=== PATIENT | male | born 1965 | race Caucasian/White ===

== ENCOUNTER 2016-04-11 22:22 | Emergency (ER) | payer OTHER ==
[2016-04-11 22:32] VITALS: BP 140/88
[2016-04-12] MEDS ORDERED: AMOXICILLIN TRIHYDRATE 250 MG CAPSULE PO ONE (00:41)
[2016-04-12] MEDS ORDERED: IBUPROFEN 400 MG TABLET PO ONE (00:42)
[2016-04-12] MEDS ORDERED: AMOXICILLIN TRIHYDRATE 250 MG CAPSULE ONE (00:42)
[2016-04-12] MEDS ORDERED: IBUPROFEN 400 MG TABLET ONE (00:43)
--- NOTE | 2016-04-12 00:54 | ERNOTE ---
ENT HPI Date of Service: 04/12/16 Source: patient - Immun/Allergies/Home Medications Immunizations: IMMUNIZATION HX Immunizations Up to Date No History of Influenza Vaccine No Hx Pneumococcal Vaccination No Allergies/Adverse Reactions: Allergies Allergy/AdvReac Type Severity Reaction Status Date / Time acetaminophen Allergy Severe Swelling Verified 04/11/16 22:32 of Throat Home Medications: HOME MEDICATIONS Amoxicillin Trihydrate [Amoxil] 500 mg PO Q8H #21 capsule 04/12/16 [Last Taken Unknown] - History of Present Illness Narrative: Complaints of a severe sore throat after awakening from a nap. No complaints of fevers or chills. He is concerned about infecting his son who had a heart transplant about one year ago. Date (Duration): 04/12/16 Severity: Present: moderate ENT Location: Present: ear (R), ear (L), throat Modifying Factors - Improves: Reports: other - nothing Modifying Factors - Worsens: Reports: nothing Associated Symptoms - ENT: Reports: denies symptoms Review of Systems - Review of Systems Constitutional: Present: no symptoms reported EYE: Present: no symptoms reported ENT: Present: See HPI Respiratory: Present: no symptoms reported Cardiology: Present: no symptoms reported Gastrointestinal/Abdominal: Present: no symptoms reported Genitourinary: Present: no symptoms reported Musculoskeletal: Present: no symptoms reported Skin: Present: no symptoms reported Neurological: Present: no symptoms reported Endocrine: Present: no symptoms reported Hematologic/Lymphatic: Present: no symptoms reported - Patient's Past Medical History Patient History - Medical: Migraines Patient History - Cardiac/Respiratory: No pertinent hx Patient History - Cancer: No Hx of Cancer Patient History - Surgical Procedures: Appendectomy, Other Patient History - Other: None - Family History Mother Family History - Medical: History Unknown Father Family History - Medical: , No pertinent hx - Social History Living Situations: home Smoking Status: Current some day smoker Do you dip or chew tobacco: Yes Alcohol Use: none Drug Use: marijuana - Immunizations Immunizations Up to Date: No Hx Pneumococcal Vaccination: No History of Influenza Vaccine: No Physical Exam - Physical Exam General Appearance: Present: no apparent distress Eye Exam: Normal inspection: bilateral Ears, Nose, Throat: Present: tonsillar exudate Neck: Present: other - Tenderness at the right anterior chain, no palpable lymph nodes. 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 - Vital Signs Vital Signs: Vital Signs 04/11/16 22:29 Temperature 36.5 C Pulse Rate 92 Respiratory 18 Rate Blood Pressure 140/88 O2 Sat by Pulse 97 Oximetry - Progress/Reassessment Chief Complaint: Earache Departure Clinical Impression: Strep pharyngitis - Departure Disposition: Home self-care Condition: Good Instructions: Strep Throat, [id number] Print Language: Hebrew Referrals: Cristiano Wellington MD [Primary Care Provider] - Prescriptions: Amoxicillin Trihydrate [Amoxil] 500 mg PO Q8H #21 capsule
== END 2016-04-12 00:49 | disposition home or self-care (01) ==
LOC: ER 22:22
DX: F17.210 Nicotine dependence, cigarettes, uncomplicated (principal); J02.0 Streptococcal pharyngitis

== ENCOUNTER 2016-12-09 08:39 | Emergency (ER) | payer OTHER ==
[2016-12-09] MEDS ORDERED: NORMAL SALINE 1,000 ML IV ONE ×2 (09:05→11:26)
[2016-12-09] MEDS ORDERED: KETOROLAC TROMETHAMINE 30 MG/ML VIAL IV ONE (09:05)
[2016-12-09] MEDS ORDERED: PROMETHAZINE HCL 25 MG in DEXTROSE 5 % IN WATER 50 ML IV ONE ×2 (09:05)
[2016-12-09] MEDS ORDERED: MORPHINE SULFATE 4 MG/ML SYRG IV ONE ×2 (09:06→10:55)
[2016-12-09] MEDS ORDERED: MORPHINE SULFATE 4 MG/ML SYRG ONE ×2 (09:17→11:10)
[2016-12-09] MEDS ORDERED: KETOROLAC TROMETHAMINE 30 MG/ML VIAL ONE (09:17)
[2016-12-09 09:19] LABS: Hematocrit 39.6 % (42.0-52.0); Mean Cell Volume 95.7 fl (78-100); Mean Corpuscular Hemoglobin 33.8 pg (27-31); Mean Corpuscular Hgb Conc 35.4 g/dl (32-36); Mean Platelet Volume 8.6 fl (6.0-9.5); Neutrophil # 11.7 K/mm3 (1.3-6.0); Neutrophil % 88.6 % (42-75.0); Platelet Count 219 K/mm3 (150-450); Red Blood Count 4.14 M/mm3 (4.7-6.0); Red Cell Distribution Width 11.9 % (11.5-14.0); White Blood Count 13.2 K/mm3 (4.0-10.5)
[2016-12-09 09:20] LABS: Urine Bilirubin Negative (NEGATIVE); Urine Blood Negative /ul (NEGATIVE); Urine Ketone Negative (NEGATIVE); Urine Nitrite Negative (NEGATIVE); Urine Protein Negative (NEGATIVE); Urine Specific Gravity <=1.005 SP.GR. (1.005-1.030); Urine Urobilinogen Normal (NORMAL); Urine pH 5.5 pH (5.0-7.0)
[2016-12-09 09:33] LABS: Urine Appearance Clear; Urine Bacteria None Seen; Urine Color Yellow; Urine RBC None Seen /hpf (0-5); Urine WBC None Seen /hpf (0-5)
[2016-12-09 09:39] LABS: Troponin I Less than 0.017 ng/ml (0.00-0.10)
[2016-12-09 09:44] LABS: Cocaine Ur Negative (NEGATIVE); Urine Barbiturate Negative (NEGATIVE); Urine Benzodiazepines Negative (NEGATIVE); Urine Opiates Negative (NEGATIVE); Urine PCP Negative (NEGATIVE); Urine THC Positive (NEGATIVE)
[2016-12-09 09:44] LABS: ALT 20 U/L (19-67); AST 18 U/L (0-48); Alkaline Phosphatase * 69 U/L (50-170); Anion Gap 15.3 mmol/L (6.8-13.8); BUN/Creatinine Ratio 8.2 (9.0-21.6); Bilirubin, Total 0.6 mg/dL (0.0-1.1); Blood Urea Nitrogen 11 mg/dL (6-23); CK Total * 68 U/L (0-259); Calcium * 8.3 mg/dL (7.9-10.9); Chloride 99 mmol/L (97-106); Glucose * 172 mg/dL (70-110); Lipase 107 U/L (73-393); Potassium 3.3 mmol/L (3.4-4.6); Sodium 133 mmol/L (132-142); Total Protein 7.4 gm/dL (6.2-8.2)
[2016-12-09 10:17] LABS: CRP 2.9 mg/dL (0.0-0.9)
--- NOTE | 2016-12-09 13:26 | ERNOTE ---
Medical Problem HPI - Narrative Date of Service: 12/09/16 - General Chief Complaint: General Assessment Time Seen by Provider: 12/09/16 08:58 Source: patient Exam Limitations: no limitations - Immun/Allergies/Home Medications Immunizations: IMMUNIZATION HX Immunizations Up to Date No History of Influenza Vaccine No Hx Pneumococcal Vaccination No Allergies/Adverse Reactions: Allergies acetaminophen Allergy (Severe, Verified 12/09/16 08:57) Swelling of Throat Home Medications: HOME MEDICATIONS Amox Tr/Potassium Clavulanate [Augmentin 875-125 Tablet] 875 mg PO Q12H #20 tab 12/09/16 [Last Taken Unknown] Promethazine HCl [Phenergan (Promethazine)] 25 mg PO Q6H PRN #10 tab 12/09/16 [ Last Taken Unknown] - History of Present History Narrative: Patient presents for vomiting and diarrhea. he relates he hadn't felt well for a couple of days. he was feeling somewhat dehydrated so started to drink more fluids. Last dilip he developed recurrent non-bloody vomiting and recurrent non- bloody, watery diarrhea. no abdominal pain with this. no clear sick contacts. he relates that for the last 3 days he has been having sharp pain in his medial left upper thigh. Hurts to touch it. Also pain in his left bicep. No CP or SOB. no dysuria. pain can be severe musculature left upper thigh. No groin pain or pain on the joints. no other clear exposures. Nothing makes this better or worse. No fever. Timing: constant Severity: moderate Modifying Factors - (Improves): Present: other - nothing Modifying Factors - (Worsens): Present: other - nothing Review of Systems - Review of Systems Constitutional: Absent: fever EYE: Absent: vision changes ENT: Absent: sore throat Respiratory: Absent: shortness of breath Cardiology: Absent: chest pain Gastrointestinal/Abdominal: Present: nausea, vomiting, diarrhea. Absent: abdominal pain Genitourinary: Absent: dysuria Skin: Absent: rash Neurological: Absent: weakness Hematologic/Lymphatic: Absent: easy bruising - Patient's Past Medical History Patient History - Medical: Migraines Patient History - Cardiac/Respiratory: No pertinent hx Patient History - Cancer: No Hx of Cancer Patient History - Surgical Procedures: Appendectomy, Other Patient History - Other: None - Family History Mother Family History - Medical: History Unknown Father Family History - Medical: , No pertinent hx - Social History Living Situations: home Abuse History: No History of abuse Psych History: No pertinent hx Alcohol Use: none Drug Use: marijuana - Immunizations Immunizations Up to Date: No Hx Pneumococcal Vaccination: No History of Influenza Vaccine: No Physical Exam - Physical Exam General Appearance: Present: alert, no apparent distress, other - non-toxic, no distress. Head Exam: Present: normal inspection, no evidence of injury Eye Exam: Normal inspection: bilateral, PERRL: bilateral Ears, Nose, Throat: Present: normal ENT inspection. Absent: pharyngeal erythema Neck: Present: normal inspection, nontender, supple, other - no meningeal signs Respiratory: Present: no respiratory distress, normal breath sounds, no accessory muscle use, chest nontender, lungs clear Cardiovascular/Chest: Present: regular rate, rhythm, normal peripheral pulses Gastrointestinal/Abdominal: Present: normal bowel sounds, nontender, nondistended, soft, other - I can elicit no tenderness in the abdomen Male Genitals Exam: Present: normal genitalia, no hernia, other - there is no scrotal tenderness Back Exam: Absent: CVA tenderness (R), CVA tenderness (L) Extremity Exam: Present: normal inspection, other - There is muscular tendenress medial left upper thigh, no redness. Strong pulses. There is no joint redness/tenderness/and full joint ROM throughtour. No compartment syndrome. No redness or warmth. there is also left biceps tendenress. Full ROM all joints. No suggestion of any septic arthritis. . Absent: extremity edema Neurological Exam: Present: alert, normal mood/affect, no motor/sensory deficits Skin Exam: Present: normal color, warm/dry. Absent: skin rash ED Progress - Results and Orders Patient's Lab Results:: I have reviewed the patient's lab results. - Vital Signs Patient's Vital Signs:: I have reviewed the patient's vital signs. Vital Signs: Vital Signs 12/09/16 12/09/16 12/09/16 08:52 09:50 11:02 Temperature 36.5 C 37.5 C Pulse Rate 94 92 69 Respiratory 16 16 18 Rate Blood Pressure 130/83 128/76 117/65 O2 Sat by Pulse 97 95 96 Oximetry 12/09/16 12/09/16 11:48 12:25 Temperature 37.3 C Pulse Rate 69 70 Respiratory 14 15 Rate Blood Pressure 113/76 121/71 O2 Sat by Pulse 95 95 Oximetry - EKG EKG: NSR EKG read: Interp. by me EKG Comments: NSR rate 87. Non-specific, no STEMI. - CT/Ultrasound CT/Ultrasound Narrative: I reviewed official CT report - Progress/Reassessment Chief Complaint: General Assessment Progress Note-Subjective: 12/09/16 13:22 patient improved with IV fluids. No convincing evidence of sepsis or serious bacterial illness. His lactic acid returned to normal with IV fluids. I am going to elect to cover him with antibiotics given the initial elevated lactic acid and WBC, although this could be viral, I believe this is appropriate initially pending blood culture results. After fluids, stable, non-toxic, no distress. Nothing to suggest sepsis, meningitis, abscess, abscess, torsion, or other acute life threat. he has appointment tomorrow with his PCP for a re- check. I discussed warning signs and reasons to return as well as the need for close f/u. Departure Clinical Impression: Vomiting, Diarrhea, Dehydration, Myalgia - Departure Disposition: Home self-care Condition: Stable Additional Instructions: Rest. Fluids. Medications as directed. I have elected to start antibiotics given your elevated white blood cell count, your doctor may have you stop these antibiotics tomorrow based on your condition. You have an appointment with your doctor scheduled for Tomorrow at 10:30am, please be there. Return for fever, vomiting, increased pain or if your condition worsens or changes in any way. Referrals: Cristiano Wellington MD [Primary Care Provider] - Prescriptions: Amox Tr/Potassium Clavulanate [Augmentin 875-125 Tablet] 875 mg PO Q12H #20 tab Promethazine HCl [Phenergan (Promethazine)] 25 mg PO Q6H PRN #10 tab PRN Reason: nausea/vomiting
[2016-12-09 13:34] VITALS: BP 115/76
== END 2016-12-09 13:15 | disposition home or self-care (01) ==
LOC: ER 08:39
DX: E86.0 Dehydration (principal); R11.10 Vomiting, unspecified; R19.7 Diarrhea, unspecified; M79.1 Myalgia

== ENCOUNTER 2017-04-11 13:17 | Emergency (ER) | payer SELFPAY ==
[2017-04-11] MEDS ORDERED: SUMAtriptan SUCCINATE 6 MG/0.5 ML VIAL SC ONE ×2 (14:13→14:23)
[2017-04-11] MEDS ORDERED: KETOROLAC TROMETHAMINE 60 MG/2 ML VIAL IM ONE ×2 (14:14→14:23)
[2017-04-11] MEDS ORDERED: ORPHENADRINE CITRATE 30 MG/ML VIAL IM ONE (14:15)
[2017-04-11] MEDS ORDERED: ORPHENADRINE CITRATE 30 MG/ML VIAL ONE (14:23)
[2017-04-11 14:55] LABS: Urine Appearance Clear; Urine Color Yellow
[2017-04-11 14:56] LABS: Urine Bacteria None Seen; Urine Bilirubin Negative (NEGATIVE); Urine Blood 5 /ul (NEGATIVE); Urine Ketone Negative (NEGATIVE); Urine Nitrite Negative (NEGATIVE); Urine Protein Negative (NEGATIVE); Urine RBC 0-5 /hpf (0-5); Urine Urobilinogen Normal (NORMAL); Urine WBC 0-5 /hpf (0-5)
--- NOTE | 2017-04-11 15:41 | ERNOTE ---
Back Pain ER HPI Date of Service: 04/11/17 Presenting Symptoms: other - back pain Time Seen by Provider: 04/11/17 14:06 Source: patient Exam Limitations: no limitations Immunizations: IMMUNIZATION HX Immunizations Up to Date No: unsure History of Influenza Vaccine No Hx Pneumococcal Vaccination No Allergies/Adverse Reactions: Allergies acetaminophen Allergy (Severe, Verified 12/09/16 08:57) Swelling of Throat Home Medications: HOME MEDICATIONS Cyclobenzaprine HCl [Flexeril] 10 mg PO TID PRN #20 tab 04/11/17 [Last Taken Unknown] Narrative: Patient presents to the ED with two days of left sided back pain, worsening today. No injury or trauma. He has had this before with muscle pain. No radicular Sx. Hurts to move and bend. No midline pain or tenderness. No trouble with bowel or bladder control. No acute focal N/T/W. Pain worse with movement. Pain can be severe when he feels his muscle spasm. Locailizes pain to left low back. He states the muscle spasms have triggered a typical migraine LILLY for him fo rwhich he normally takes Imitrex injection. Timing: Reports: other - not bad if not moving. Quality/Severity: Reports: cramping Location of pain: Reports: lower back, no radiation, other - left low back Recent Injury?: Reports: no Possible Precipitating Factor: Reports: none Modifying Factors - (Improves): Reports: other - rest Modifying Factors - (Worsens): Reports: movement to right, movement to left, movement flexion Associated Symptoms: Denies: fever/chills, constipation/incontinence, nausea/ vomiting, problems urinating, difficulty walking, lightheadedness, numbess/ weakness in legs Prior Treament: Denies: recently seen Review of Systems - Review of Systems Constitutional: Absent: fever EYE: Absent: vision changes ENT: Absent: sore throat Respiratory: Absent: shortness of breath Cardiology: Absent: chest pain Gastrointestinal/Abdominal: Absent: abdominal pain Genitourinary: Absent: dysuria Musculoskeletal: Present: See HPI Skin: Absent: rash Neurological: Absent: weakness - Patient's Past Medical History Patient History - Medical: Migraines Patient History - Cardiac/Respiratory: No pertinent hx Patient History - Cancer: No Hx of Cancer Patient History - Surgical Procedures: Appendectomy, Other Patient History - Other: None - Family History Mother Family History - Medical: History Unknown Father Family History - Medical: , No pertinent hx - Social History Living Situations: spouse Abuse History: No History of abuse Psych History: No pertinent hx Smoking Status: Current every day smoker Have you smoked in the past 12 months: Yes Do you dip or chew tobacco: Yes Alcohol Use: none Drug Use: marijuana - Immunizations Immunizations Up to Date: No - unsure Hx Pneumococcal Vaccination: No History of Influenza Vaccine: No Physical Exam - Physical Exam General Appearance: Present: alert, no apparent distress Head Exam: Present: normal inspection, no evidence of injury Eye Exam: Normal inspection: bilateral, PERRL: bilateral Ears, Nose, Throat: Present: normal ENT inspection Neck: Present: normal inspection Respiratory: Present: no respiratory distress, normal breath sounds, no accessory muscle use, lungs clear Cardiovascular/Chest: Present: regular rate, rhythm, normal peripheral pulses Gastrointestinal/Abdominal: Present: normal bowel sounds, nontender, nondistended, soft Back Exam: Present: normal inspection, other - there is completely reproducible tendenress left low back musculature. Palpation here casues him to grimace and reproduces his pain. No vertebral tenderness. Clinically his Sx are completely reproducible with palpation of the low back muscualture.. Absent: CVA tenderness (R), CVA tenderness (L) Extremity Exam: Present: normal inspection, normal range of motion Neurological Exam: Present: alert, normal mood/affect, no motor/sensory deficits , other - patellar tendon reflexes equal and symmetric. Full LE strength. Gait stable. Can stand on toes and heels. No evidence of neurologic deficit. Sensation intatct. No suggestion of cauda equian syndrome Skin Exam: Present: normal color, warm/dry ED Progress - Results and Orders Patient's Lab Results:: I have reviewed the patient's lab results. - Vital Signs Patient's Vital Signs:: I have reviewed the patient's vital signs. Vital Signs: Vital Signs 04/11/17 04/11/17 13:37 14:10 Temperature 36.8 C 36.8 C Pulse Rate 71 80 Respiratory 16 16 Rate Blood Pressure 115/91 125/72 O2 Sat by Pulse 99 98 Oximetry - Progress/Reassessment Chief Complaint: Back Pain Progress Note-Subjective: 04/11/17 15:[address] I [address] a CT for the trace blood but he was feeling so much improved that he did not want to have that. He understands risks and benefits. Clinically this is musculoskeletal pain, no suggestion of infectious process, abscess, diskiitis, neuro deficit, fracture, cauda-equina syndrome or other life or limb threat. He is requesting to go home. I discussed warning signs and reasons to return as well as the need for close f/u. Departure Clinical Impression: Musculoskeletal pain, Migraine headache - Departure Disposition: Home self-care Condition: Stable Instructions: Musculoskeletal Pain Additional Instructions: Rest. Fluids. Muscle relaxant as directed. No driving with the medications. Follow-up with your doctor Thursday for a re-check. Return if you change your mind about having the CT scan we discussed, if you develop fever, numbness, tingling, weakness, loss of bowel or bladder control or if your condition worsens or changes in any way. Referrals: Cristiano Wellington MD [Primary Care Provider] - Prescriptions: Cyclobenzaprine HCl [Flexeril] 10 mg PO TID PRN #20 tab PRN Reason: MUSCLE SPASMS
[2017-04-11 17:25] VITALS: BP 117/91
== END 2017-04-11 15:40 | disposition home or self-care (01) ==
LOC: ER 13:17
DX: F17.200 Nicotine dependence, unspecified, uncomplicated; G43.909 Migraine, unspecified, not intractable, without status migrainosus; M79.1 Myalgia